=== PATIENT | female | born 1965 | race Caucasian/White ===

== ENCOUNTER 2024-05-02 07:37 | Day surgery (SDC) | payer BC ==
[~2024-05-02] VITALS: Ht 167.6 cm; Wt 72.0 kg
[~2024-05-02 07:37] MED LIST: B-12100010 PO; CALC600T60 PO; CHLO125TA PO; FERR32TA PO; FLAX1CAP5 PO; LOSA100T46 PO; NS 250 ML IV ONE; OMEP1CAP71 PO; POTA-298 PO; PRIM250T8 PO; PROP160C PO; SEMA1.7P SC; SERT25TA21 PO; SERT50TA29 PO; THERTAB52 PO; VALA1TAB5 PO
[2024-05-02] MEDS ORDERED: GLYCOPYRROLATE INJ 0.2 MG/ML 2 ML VIAL As Ordered ONE (09:23)
[2024-05-02] MEDS ORDERED: propofoL 200 MG/20 ML VIAL As Ordered ONE (09:23)
[2024-05-02 09:47] VITALS: BP 110/64; O2SAT 100
== END 2024-05-02 09:54 | disposition home or self-care (01) ==
LOC: M OPP 07:37
PROVIDERS: ATTEND Internal Medicine Gastroenterology
DX: Z12.11 Encounter for screening for malignant neoplasm of colon (principal); D12.5 Benign neoplasm of sigmoid colon; K57.30 Diverticulosis of large intestine without perforation or abscess without bleeding; K64.8 Other hemorrhoids; K21.9 Gastro-esophageal reflux disease without esophagitis; Z86.0100 Personal history of colon polyps, unspecified; Z87.19 Personal history of other diseases of the digestive system; Z98.84 Bariatric surgery status; Z98.0 Intestinal bypass and anastomosis status; Z90.49 Acquired absence of other specified parts of digestive tract; G25.0 Essential tremor; Z80.0 Family history of malignant neoplasm of digestive organs; Z90.710 Acquired absence of both cervix and uterus; Z79.899 Other long term (current) drug therapy
CPT/HCPCS: 45385; 88305; J1596